=== PATIENT | female | born 1985 | race Caucasian/White ===

== ENCOUNTER → 2018-02-05 16:00 | Outpatient (CLI) | payer MEDICAID, SELFPAY ==
[2018-02-08 15:48] LABS: HPV Reflexed? NOT INDICATED
== END ==
PROVIDERS: Referring Provider Obstetrics & Gynecology; Visit Provider Obstetrics & Gynecology
DX: Z12.4 Encounter for screening for malignant neoplasm of cervix (principal)
CPT/HCPCS: 88175; G0145

== ENCOUNTER → 2020-12-13 13:25 | Outpatient (CLI) | payer MEDICAID, SELFPAY ==
[2020-12-13 13:55] LABS: Absolute Lymphocyte Count 2.14 X10^3/uL (0.83-4.51); Absolute Neutrophil Count 7.6 X10^3/uL (2.0-7.7); Basophil# 0.08 X10^3/uL; Basophil% 0.8 % (0-1); Eosinophils% 0.9 % (0-5); Hematocrit 34.6 % (37-47); Lymphocyte # 2.14 X10^3/ul (0.83-4.51); Lymphocyte % 20.2 % (19-41); Mean Corp Hgb Conc 34.7 g/dL (32-36); Mean Corpuscular Hgb 31.3 pg (27.0-32.0); Mean Corpuscular Volume 90.3 fL (81-99); Mean Platelet Vol. 10.1 fl (6.2-12.0); Monocyte# 0.65 X10^3/uL; Monocyte% 6.1 % (0-10); NRBC Flagged by Analyzer 0 % (0-5); Neutrophil # 7.61 X10^3/uL (2.7-7.7); Neutrophil % 71.7 % (47-70); Platelet Count 283 K/mm3 (150-450); RBC Distribution Width SD 39.5 fl (35.1-43.9); Red Blood Count 3.83 M/mm3 (4.2-5.4); White Blood Count 10.6 K/mm3 (4.4-11.0)
[2020-12-13 13:56] LABS: Color, Urine Yellow (Yellow); Glucose, Dipstick Normal (Normal); Ketone-Dipstick Negative (Negative); Leukocyte Esterase-Dipstick Negative /ul (Negative); Nitrite-Dipstick Negative (Negative); Occult Blood-Urine Negative /ul (Negative); Protein-Dipstick Negative (Negative); Urine Bilirubin Dipstick Negative (Negative); Urine Clarity Clear (Clear); Urine Urobilinogen Normal (Normal)
[2020-12-14 08:47] LABS: HIV - WCH Non-Reactive (Nonreactive); Hepatitis B Surface Antigen Non-Reactive (Nonreactive); Hepatitis C Antibody Non-Reactive (Nonreactive); Rubella IgG Reactive (Nonreactive); Syphilis Antibodies Non-reactive
[2020-12-16 03:07] LABS: Chlamydia By Nucleic Acid AMP Negative (Negative)
[2020-12-16 09:00] LABS: Gonococcus By Nucleic Acid AMP Negative (Negative)
[2020-12-16 13:28] LABS: HPV APTIMA, High Risk Negative (Negative)
== END ==
PROVIDERS: Visit Provider Obstetrics & Gynecology
DX: Z34.81 Encounter for supervision of other normal pregnancy, first trimester (principal); Z12.4 Encounter for screening for malignant neoplasm of cervix; Z11.3 Encounter for screening for infections with a predominantly sexual mode of transmission
CPT/HCPCS: 36415; 81002; 84443; 85025; 86703; 86762; 86780; 86803; 87086; 87340; 87491; 87591; 87624; 88175; G0145

== ENCOUNTER 2021-05-03 09:34 | Outpatient (CLI) | payer MEDICAID, SELFPAY ==
[2021-05-03 10:20] LABS: Hematocrit 33.3 % (37-47); Hemoglobin 11.2 g/dL (12.0-15.0); Mean Corp Hgb Conc 33.6 g/dL (32-36); Mean Corpuscular Hgb 31.3 pg (27.0-32.0); Mean Platelet Vol. 9.9 fl (6.2-12.0); Platelet Count 264 K/mm3 (150-450); RBC Distribution Width CV 12.4 % (11.6-14.6); RBC Distribution Width SD 42.5 fl (35.1-43.9); Red Blood Count 3.58 M/mm3 (4.2-5.4); White Blood Count 9.7 K/mm3 (4.4-11.0)
[2021-05-03 10:27] LABS: Glucose Challenge Gest 1H 50g 152 mg/dL (70-140)
== END 2021-05-03 23:59 | disposition short-term general hospital (02) ==
LOC: WOBLAB 09:35
PROVIDERS: Visit Provider Obstetrics & Gynecology
DX: Z34.83 Encounter for supervision of other normal pregnancy, third trimester (principal)
CPT/HCPCS: 36415; 82950; 85027

== ENCOUNTER 2021-06-28 11:42 | Outpatient (CLI) | payer MEDICAID, SELFPAY | END 2021-06-28 23:59 | disposition home or self-care (01) | LOC: LABSPEC 11:44 | PROVIDERS: Visit Provider Obstetrics & Gynecology | DX: Z36.85 Encounter for antenatal screening for Streptococcus B (principal) | CPT/HCPCS: 87081 ==

== ENCOUNTER 2021-07-22 04:00 | Outpatient (CLI) | payer MEDICAID, SELFPAY ==
[2021-07-22 04:32] VITALS: BP 116/73; PULSE 83; PULSE 86; O2SAT 97
[2021-07-22 04:46] VITALS: BMI 28.0
[2021-07-22 07:26] VITALS: BP 104/58; PULSE 86; O2SAT 97
--- NOTE | 2021-07-22 11:00 | OB.TRI.NOTE ---
HPI - General HPI Narrative MARIAELENA DEY, is a 36 F who presents at 39 6/7 wga with c/o painful contractions. PFSH PFSH Medical History (Updated 07/27/21 @ 07:[address] Yarely Prado MD) Gestational diabetes Home Medications Prenatabs FA 1 tab PO DAILY 09/21/14 [History Last Taken 07/24/21] ferrous sulfate [Iron (ferrous sulfate)] 325 mg PO DAILY 09/21/14 [History Last Taken 07/21/21] Allergy/AdvReac Type Severity Reaction Status Date / Time No Known Allergies Allergy Verified 09/21/14 05:06 Surgical History (Updated 07/25/21 @ 01:45 by Heather Hoover) History of gynecologic surgery Social History Smoking Status: Never smoker History Elective abortions Hx Para 3 Spontaneous abortions Hx # Term Pregnancies Ectopic pregnancies Hx # Pregnancies Multiple births # of living children NST FHR Rate Baby A Baseline: 130 Variability:: Moderate Accelerations:: None Decelerations:: None NST Reactive:: Yes FHR Category:: Category I Uterine Activity:: 1-06/02 Assessment & Plan (1) 39 weeks gestation of : PLAN: SVE unchanged and contractions spacing False labor d/c home
== END 2021-07-22 23:59 | disposition home or self-care (01) ==
LOC: WPOUT 04:11 → WP 04:12
PROVIDERS: Visit Provider Obstetrics & Gynecology
DX: O47.1 False labor at or after 37 completed weeks of gestation (principal); Z3A.39 39 weeks gestation of pregnancy
CPT/HCPCS: 59050; 59025; G0378 ×2; 99218

== ENCOUNTER 2021-07-25 01:30 | Inpatient (IN) | payer MEDICAID, SELFPAY ==
[2021-07-25] VITALS (31 sets, daily range): BP systolic 87–123; BP diastolic 52–87; PULSE 68–115; RESP 16; TEMP 36.3–36.9; O2SAT 97–99; BMI 28.0
[2021-07-25 01:24] LABS: ROM Internal Control Test YES-OK TO RESULT pt. (Internal QC)
[2021-07-25 01:26] LABS: ROM Patient Test POSITIVE (Negative)
[2021-07-25] MEDS: Lactated Ringers 1,000 ML 50 ML IV (01:40)
[2021-07-25 01:57] LABS: Bedside Glucose 78 mg/dL (74-106)
[2021-07-25 02:04] LABS: Absolute Lymphocyte Count 1.85 X10^3/uL (0.83-4.51); Absolute Neutrophil Count 5.7 X10^3/uL (2.0-7.7); Basophil# 0.04 X10^3/uL; Basophil% 0.5 % (0-1); Eosinophils% 1.2 % (0-5); Hematocrit 33.7 % (37-47); Hemoglobin 11.7 g/dL (12.0-15.0); Lymphocyte # 1.85 X10^3/ul (0.83-4.51); Lymphocyte % 22.2 % (19-41); Mean Corp Hgb Conc 34.7 g/dL (32-36); Mean Corpuscular Hgb 31.5 pg (27.0-32.0); Mean Corpuscular Volume 90.6 fL (81-99); Mean Platelet Vol. 10.5 fl (6.2-12.0); Monocyte# 0.58 X10^3/uL; NRBC Flagged by Analyzer 0 % (0-5); Neutrophil # 5.71 X10^3/uL (2.7-7.7); Neutrophil % 68.5 % (47-70); Platelet Count 226 K/mm3 (150-450); RBC Distribution Width CV 13.2 % (11.6-14.6); RBC Distribution Width SD 43.3 fl (35.1-43.9); Red Blood Count 3.72 M/mm3 (4.2-5.4); White Blood Count 8.3 K/mm3 (4.4-11.0)
[2021-07-25 03:06] LABS: Bedside Glucose 85 mg/dL (74-106)
[2021-07-25] MEDS: Oxytocin 30 units/NS 500 ml 30 UNITS/500 ML IV.SOLN IV (05:40)
[2021-07-25 06:56] LABS: Bedside Glucose 87 mg/dL (74-106)
[2021-07-25] MEDS: Lactated Ringers 500 ML 999 ML IV (06:58)
[2021-07-25] MEDS: Oxytocin 30 units/NS 500 ml 30 UNITS/500 ML IV.SOLN 334 UNITS IV (08:12)
--- NOTE | 2021-07-25 08:43 | HP.PCM.OB_ITS ---
History and Physical Date of Admission: 07/25/21 36-year-old G5, P3 at 40/2 weeks, GEMA 07/23/2021 by LMP, admitted in active labor. Reports contractions. Denies leaking of fluid, vaginal bleeding. Reports movement. Denies headache, vision changes, chest pain or shortness of breath, nausea or vomiting, diarrhea or constipation, fevers or chills. complicated by: Advanced maternal age, GDM A1 [employer] history: G1: 39-week G2 8-week SAB G3: 39-week , G4: 40-week G5: Current Medical history: Denies Surgical history: Allergies: No known drug allergies: Medications: vitamin Social history: Denies tobacco, alcohol, drug use Family history: Noncontributory Review of system: Negative otherwise stated above Physical exam: Vitals General: Using nitrous oxide at bedside HEENT: Normocephalic/atraumatic Cardiac: Regular rate and rhythm Lungs: Clear to auscultation bilaterally Abdomen: Soft, nontender, gravid Extremities: No edema Neurologic: Cranial nerves II through XII grossly intact H musculoskeletal: Range of motion intact, strength 5 out of 5 all extremities Cervical exam: 10 cm, AROM clear fluid forebag labs: a positive HIV negative Hepatitis B/hepatitis C negative/negative Syphilis nonreactive Gonorrhea/chlamydia negative Rubella immune GBS negative on 06/28 Labs on admission: Within normal limits Assessment/plan: 36-year-old G5, P3 at 40/2 weeks admitted with rupture of membranes. Complicated by advanced maternal age and GDM A1. ?Admit to labor and delivery, will augment with Pitocin if no cervical change ?GDM A1: Routine orders, ?GBS negative
--- NOTE | 2021-07-25 08:44 | EX.PCM.OBRPT ---
Maternal Data Information Final GEMA: 07/23/21 Final GEMA Source: LMP Vaginal Delivery Operative Information Date of Procedure: 07/25/21 Pre-Operative Diagnosis: Bain intrauterine at term, GDM A1 Post-Operative Diagnosis: Bain intrauterine at term, GDM A1 Surgery / Procedure Performed: Spontaneous Vaginal Delivery Estimated Blood Loss: 300cc Findings Description of Procedure: Spontaneous vaginal delivery of viable female. No nuchal cord. Patient had been pushing on all fours, moved to left lateral side to deliver shoulders, which was done with ease. No evidence of shoulder dystocia, was maternal positional issue. Cord clamped and cut, baby to mom. Spontaneous delivery of placenta. No lacerations. A Gender: Female (1 minute): 8 (5 minute): 9
--- NOTE | 2021-07-25 11:02 | NURSING ---
patient missed hat. reports feeling like her bladder was fully emptied.
[2021-07-25 12:46] LABS: Bedside Glucose 106 mg/dL (74-106)
[2021-07-26 02:18] VITALS: BP 117/66; PULSE 77; RESP 16; TEMP 36.6
[2021-07-26 06:05] VITALS: BP 99/54; PULSE 74; RESP 16; TEMP 36.6
[2021-07-26 06:07] VITALS: BP 99/54; PULSE 74
[2021-07-26 06:21] LABS: Bedside Glucose 100 mg/dL (74-106)
--- NOTE | 2021-07-26 08:52 | PN.OBGYN_ITS ---
Subjective Subjective She reports perineum is sore, but denies other painfulness. No headache or vision changes. Feels well. She is . Denies heavy locha. Objective Data Objective Data Vital Signs: Vital Signs Temp Pulse Resp BP Pulse Ox 97.8 F 74 16 99/54 L 97 07/26/21 06:05 07/26/21 06:07 07/26/21 06:05 07/26/21 06:07 07/25/21 15:42 Oxygen Delivery Method Room Air Weight: 69.513 kg Body Mass Index (BMI) 28.0 Intake & Output: Intake and Output for Last 24 Hours 07/24/21 07/25/21 07/26/21 23:59 23:59 23:59 Intake Total 1300.39 / 1300.39 Output Total 1000 / 1000 Balance 300.39 / 300.39 Lab / Micro Data Result Diagrams: 07/25/21 01:40 Labs: Laboratory Results - last 24 hr 07/25/21 12:37: POC Glucose 106 07/26/21 06:13: POC Glucose 100 Micro: Microbiology 07/25/21 01:40 Nasal Secretion SARS-CoV-2 Antigen (Rapid) - Final Physical Exam Const alert, oriented x3 and no apparent distress Resp normal respiratory effort and normal air movement Cardio regular rate, regular rhythm, S1 normal heart sound and S2 normal heart sound GI soft to palpation, non-tender and non-distended Uterus Palpation: uterus fundus firm and other OB fundus nontender, lochia mo derate Extremity no calf tenderness and no pedal edema Neuro oriented x3 Assessment & Plan (1) (spontaneous vaginal delivery): PLAN: A positive Routine care Plan for d/c home later today if infant discharged (2) Gestational diabetes: QUALIFIERS: Gestational diabetes mellitus control: diet-controlled Trimester: third trimester Qualified Code(s): O24.410 - Gestational diabetes mellitus in , diet controlled COMMENT: 2021 PLAN: well controlled Fasting this am 100. Plan screening at 12 weeks
[2021-07-26 09:00] VITALS: BP 106/58; PULSE 87; RESP 15; TEMP 36.7
[2021-07-26 09:04] VITALS: BP 106/58; PULSE 87
--- NOTE | 2021-07-26 11:08 | PCM.DC.BLA ---
Discharge Summary Date of Admission: 07/25/21 Date of Discharge: 07/26/21 Summary: 36yo admitted at 40 2/7 weeks gestation with SROM. She received pitocoin augmentation and had an uncomplicated vaginal delivery. Her was complicated by gestational diabetes, diet controlled. Her blood sugars remained well controlled during her hospital stay and did not require additional treatment. Her course was unremarkable and she was discharged to home on day #1 Physical Exam Const alert, oriented x3 and no apparent distress General Appearance: cooperative and comfortable HEENT normocephalic Resp Auscultation: clear to auscultation bilaterally Cardio regular rate, regular rhythm, S1 normal heart sound and S2 normal heart sound OB / External & Speculum: other Uterus Palpation: other OB Fundus firm and nontender Extremity no calf tenderness and no pedal edema Meaningful Use Info Meaningful Use Diagnoses (Choose all that apply): None applicable Discharge Plan Admission Admit Date/Time: 07/25/21 01:30 Primary Reason for Your Visit: Vaginal delivery Attending Provider: Davina Shaver Discharge Orders/Prescriptions Prescriptions: Continued ferrous sulfate [Iron (ferrous sulfate)] 325 MG tablet 325 mg PO DAILY RF: 0 Prenatabs FA 1 TABLET tablet 1 tab PO DAILY RF: 0 Disposition Disposition (needs filled in before D/C Order can be placed): Home, Self Care
== END 2021-07-26 11:32 | disposition home or self-care (01) | DRG 560 ==
LOC: WPOUT 01:32 → WP 01:32
PROVIDERS: Obstetrics & Gynecology; Admitting Provider Student in an Organized Health Care Education/Training Program; Visit Provider Student in an Organized Health Care Education/Training Program
DX: O42.92 Full-term premature rupture of membranes, unspecified as to length of time between rupture and onset of labor (principal); Z37.0 Single live birth; O24.420 Gestational diabetes mellitus in childbirth, diet controlled; Z3A.40 40 weeks gestation of pregnancy
CPT/HCPCS: 59025; 59050; 82962; 84112; 85025; 86850; 86900; 86901; 87426; 99218; J7120; G0378